=== PATIENT | female | born 1985 | race Caucasian/White ===

== ENCOUNTER 2024-12-31 08:01 | Outpatient (CLI) | payer OTHER, SELFPAY | END 2024-12-31 08:02 | disposition home or self-care (01) | LOC: ANHAUDASC 08:03 | PROVIDERS: Visit Provider Otolaryngology | DX: H90.72 Mixed conductive and sensorineural hearing loss, unilateral, left ear, with unrestricted hearing on the contralateral side (principal); H93.12 Tinnitus, left ear | CPT/HCPCS: 92557; 92567 ==

== ENCOUNTER 2025-04-19 13:53 | Outpatient (CLI) | payer OTHER, SELFPAY ==
--- NOTE | ~2025-04-19 | CT_ITS ---
EXAMINATION: CT IAC/mastoids BI wo con DATE: 04/19/2025 14:14 INDICATION: Unilateral left hearing conductive hearing loss TECHNIQUE: Computed tomography (CT) of the temporal bones was performed without intravenous contrast. The dose-length product was 267.29 mGy-cm. COMPARISON: None FINDINGS: RIGHT TEMPORAL BONE: The external auditory canal, ossicles and scutum are normal. The tympanic membrane is not clearly visualized. The mastoid air cells, middle ear cavity including Prussak's space are clear. The oval window, vestibule, cochlea, semicircular canals, internal auditory canal, vestibular aqueduct and course of the facial nerve are normal. The external auditory canal and jugular bulb are unremarkable. LEFT TEMPORAL BONE: The external auditory canal, tympanic membrane, ossicles and scutum are normal. The left mastoid is hyperpneumatized with small mastoid effusion. The middle ear cavity including Prussak's space are clear. The oval window, vestibule, cochlea, semicircular canals, internal auditory canal, vestibular aqueduct and course of the facial nerve are normal. The external auditory canal is normal. There is a high riding jugular bulb the apex of which is positioned the same level as the roof of the internal auditory canal and the cephalad margin of the cochlea. IMPRESSION: 1. The tympanic membrane is not clearly visualized on the right. Otherwise unremarkable CT of the right temporal bone. 2. High riding left jugular bulb and hypopneumatized left mastoid with small left mastoid effusion. Reviewed, dictated and finalized at location A. IMPRESSION: 1. The tympanic membrane is not clearly visualized on the right. Otherwise unre markable CT of the right temporal bone. 2. High riding left jugular bulb and hypopneumatized left mastoid with small le ft mastoid effusion.
== END 2025-04-19 13:54 | disposition home or self-care (01) ==
DX: J34.89 Other specified disorders of nose and nasal sinuses (principal); H90.12 Conductive hearing loss, unilateral, left ear, with unrestricted hearing on the contralateral side; H69.93 Unspecified Eustachian tube disorder, bilateral
CPT/HCPCS: 70480